=== PATIENT | female | born 2000 | race Caucasian/White ===

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

== ENCOUNTER 2020-03-27 12:10 | Emergency (ER) | payer MEDICAID ==
[2020-03-27] MEDS ORDERED: ACETAMINOPHEN 325 MG TABLET PO ONE (12:41)
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
[2020-03-27 12:42] VITALS: BP 120/72
== END 2020-03-27 12:47 | disposition home or self-care (01) ==
LOC: ER 12:10
DX: S06.0X0A Concussion without loss of consciousness, initial encounter (principal); Y04.8XXA Assault by other bodily force, initial encounter
CPT/HCPCS: 99283; J3490